=== PATIENT | female | born 1965 | race Caucasian/White ===

== ENCOUNTER 2016-05-01 20:28 | Emergency (ER) | payer OTHER ==
[2016-05-01 20:46] VITALS: TEMP 98.1; BMI 27.4
[2016-05-01] MEDS ORDERED: LORAZEPAM CARPU-JECT 2 MG/ML DISP.SYRIN IM ONE ×2 (20:49→21:34)
[2016-05-01] MEDS ORDERED: HALOPERIDOL LACTATE 5 MG/ML IM ONE ×2 (20:49→21:33)
--- NOTE | 2016-05-01 20:49 | PDOC ---
[id number] No Limitations - History of Present Illness Timing/Duration: unsure Severity: mild Associated Symptoms: reports: denies symptoms <Amisha Palacio - Last Filed: 05/02/16 06:08> <Divina Siddiqui - Last Filed: 06/22/16 09:03> - General Chief Complaint: Alcohol intoxication Stated Complaint: INTOX Time Seen by Provider: 05/01/16 20:35 Past History - Travel Traveled outside of the country in the last 30 days: No Close contact w/someone who was outside of country & ill: No - Past Medical History Anemia: Yes - Psycho/Social/Smoking Cessation Hx Anxiety: No Suicidal Ideation: No Smoking Status: Yes Smoking History: Former smoker Number of Cigarettes Smoked Daily: 7 If you are a former smoker, when did you quit?: 15 yrs ago Information on smoking cessation initiated: No 'Breaking Loose' booklet given: 07/04/13 Hx Alcohol Use: Yes Drug/Substance Use Hx: (marijuana) <Amisha Palacio - Last Filed: 05/02/16 06:08> <Divina Siddiqui - Last Filed: 06/22/16 09:03> - Past Medical History Allergies/Adverse Reactions: Allergies Allergy/AdvReac Type Severity Reaction Status Date / Time No Known Allergies Allergy Verified 05/01/16 20:44 Home Medications: Ambulatory Orders No Home Medications 0 dose .ROUTE UTDICT 01/06/13 Review of Systems - Review of Systems Able to Perform ROS?: Yes Comments:: 05/02/16 00:37 CONSTITUTIONAL: Absent: fever, chills, diaphoresis, generalized weakness, malaise, loss of appetite HEENT: Absent: rhinorrhea, nasal congestion, throat pain, throat swelling, difficulty swallowing, mouth swelling, ear pain, eye pain, visual Changes CARDIOVASCULAR: Absent: chest pain, loss of consciousness, palpitations, irregular heart rate, peripheral edema RESPIRATORY: Absent: cough, shortness of breath, dyspnea with exertion, orthopnea, wheezing, stridor, hemoptysis GASTROINTESTINAL: Absent: abdominal pain, abdominal distension, nausea, vomiting, diarrhea, constipation, melena, hematochezia GENITOURINARY: Absent: dysuria, frequency, urgency, hesitancy, hematuria, flank pain, genital pain MUSCULOSKELETAL: Absent: myalgia, arthralgia, joint swelling SKIN: Absent: rash, itching, pallor HEMATOLOGIC/IMMUNOLOGIC: Absent: easy bleeding, easy bruising, lymphadenopathy, frequent infections ENDOCRINE: Absent: unexplained weight gain, unexplained weight loss, heat intolerance, cold intolerance NEUROLOGIC: Absent: headache, focal weakness or paresthesias, dizziness, unsteady gait, seizure, mental status changes, bladder or bowel incontinence PSYCHIATRIC: Absent: anxiety, depression, suicidal or homicidal ideation, hallucinations. Is the patient limited Stateless proficient: No <Amisha Palacio - Last Filed: 05/02/16 06:08> *Physical Exam - Vital Signs Last Vital Signs Temp Pulse Resp BP Pulse Ox 98.1 F 102 H 18 147/87 95 05/01/16 20:45 05/01/16 20:45 05/01/16 20:45 05/01/16 20:45 05/01/16 20:45 - Physical Exam Comments: 05/02/16 00:37 GENERAL: AOB Well developed, well nourished. Awake and alert. No acute distress. HEENT: Normocephalic, atraumatic. PERRLA, EOMI. No conjunctival pallor. Sclera are non- icteric. Moist mucous membranes. Oropharynx is clear. NECK: Supple. Full ROM. No JVD. Carotid pulses 2+ and symmetric, without bruits. No thyromegaly. No lymphadenopathy. CARDIOVASCULAR: Regular rate and rhythm. No murmurs, rubs, or gallops. Distal pulses are 2+ and symmetric. PULMONARY: No evidence of respiratory distress. Lungs clear to auscultation bilaterally. No wheezing, rales or rhonchi. ABDOMINAL: Soft. Non-tender. Non-distended. No rebound or guarding. No organomegaly. Normoactive bowel sounds. MUSCULOSKELETAL Normal range of motion at all joints. No bony deformities or tenderness. No CVA tenderness. EXTREMITIES: No cyanosis. No clubbing. No edema. No calf tenderness. SKIN: Warm and dry. Normal capillary refill. No rashes. No jaundice. NEUROLOGICAL: Alert, awake, appropriate but uncooperative; pt kept flailing her arms and legs. Loud and boisterous. Cranial nerves 2-12 intact. No deficits to light touch and temperature in face, upper extremities and lower extremities. No motor deficits in the in face, upper extremities and lower extremities. Normoreflexic in the upper and lower extremities. Normal speech. Toes are down- going bilaterally. Gait is normal without ataxia. PSYCHIATRIC: Cooperative. Good eye contact. Appropriate mood and affect. <Amisha Palacio - Last Filed: 05/02/16 06:08> - Vital Signs Last Vital Signs Temp Pulse Resp BP Pulse Ox 98.1 F 89 18 109/87 100 05/01/16 20:45 05/02/16 06:06 05/02/16 06:06 05/02/16 06:06 05/02/16 06:06 <Divina Siddiqui - Last Filed: 06/22/16 09:03> ED Treatment Course - LABORATORY CBC & Chemistry Diagram: 05/01/16 21:05 05/01/16 21:05 <Amisha Palacio - Last Filed: 05/02/16 06:08> - LABORATORY CBC & Chemistry Diagram: 05/01/16 21:05 05/01/16 21:05 - ADDITIONAL ORDERS Additional order review: 05/01/16 21:05 RBC 4.16 MCV 90.3 D MCHC 33.7 RDW 14.0 D MPV 8.9 D Neutrophils % 62.3 Lymphocytes % 29.1 Monocytes % 6.5 Eosinophils % 0.5 Basophils % 1.6 - Medications Given in the ED: ED Medications Discontinued Medications Generic Name Dose Route Start Last Admin Trade Name Sivlina PRN Reason Stop Dose Admin Diphenhydramine HCl 25 mg 05/01/16 20:49 05/01/16 21:00 Benadryl Injection - IM 05/01/16 20:50 25 mg ONCE ONE Administration Diphenhydramine HCl 25 mg 05/01/16 21:34 05/01/16 23:17 Benadryl Injection - IM 05/01/16 21:35 Not Given ONCE ONE Diphenhydramine HCl 25 mg 05/01/16 21:38 05/01/16 23:17 Benadryl Injection - IVPB 05/01/16 21:39 Not Given ONCE ONE Haloperidol 5 mg 05/01/16 20:49 05/01/16 21:00 Haldol Injection (Fast Acting) - IM 05/01/16 20:50 5 mg ONCE ONE Administration Haloperidol 5 mg 05/01/16 21:33 05/01/16 22:11 Haldol Injection (Fast Acting) - IM 05/01/16 21:34 Not Given ONCE ONE Folic Acid 1 mg/ Thiamine HCl 1,000 mls @ 125 mls/hr 05/01/16 20:50 05/01/16 21 :18 100 mg/ Multivitamins/Minerals IVPB 05/02/16 04:49 125 mls/hr 10 ml/ Sodium Chloride ONCE ONE Administration Lorazepam 2 mg 05/01/16 20:49 05/01/16 21:00 Ativan Injection - IM 05/01/16 20:50 2 mg ONCE ONE Administration Lorazepam 2 mg 05/01/16 21:34 05/01/16 23:16 Ativan Injection - IM 05/01/16 21:35 Not Given ONCE ONE <Divina Siddiqui - Last Filed: 06/22/16 09:03> *DC/Admit/Observation/Transfer - Discharge Dispostion Admit: No <Amisha Palacio - Last Filed: 05/02/16 06:08> - Attestations Physician Attestion: I reviewed the case with the mid-level practitioner and agree with the mid- level practitioner's assessment, diagnosis and disposition. <Divina Siddiqui - Last Filed: 06/22/16 09:03> Diagnosis at time of Disposition: Intoxication - Discharge Dispostion Disposition: HOME Condition at time of disposition: Improved - Referrals Referrals: Mark Nye MD [Primary Care Provider] - - Patient Instructions Printed Discharge Instructions: Blood Alcohol Level Additional Instructions: Increase fluids Tylenol/Motrin as needed Return to the ER for any chest pain, shortness of breath Progress Note - Progress Note Progress Note: 50 yo F biba after finding her in front her home, intoxicated. Patient denies any headache, dizziness, lightheadedness, sore throat, neck pain, back pains, chest pain, shortness of breath, abdominal pains. Patient presents to the emergency Department loud and boisterous. Yelling and using profanity. Flaring her arms and legs <Amisha Palacio - Last Filed: 05/02/16 06:08>
[2016-05-01] MEDS ORDERED: FOLIC ACID INJECTION - 1 MG, THIAMINE HCL 100 MG, MULTIVIT INJECTION ADULT 10 ML in SOD... IVPB ONE (20:50)
[2016-05-01] MEDS ORDERED: HALOPERIDOL LACTATE 5 MG/ML ONE (20:50)
[2016-05-01] MEDS ORDERED: LORAZEPAM CARPU-JECT 2 MG/ML DISP.SYRIN ONE (20:51)
[2016-05-01 21:13] LABS: BASOPHIL 1.6 % (0-2.0); EOSINOPHIL 0.5 % (0-4.5); MCH 30.5 pg (25.7-33.7); MCHC 33.7 g/dl (32.0-36.0); MEAN CELL VOLUME 90.3 fl (80-96); MEAN PLT VOLUME 8.9 fl (7.5-11.1); NEUTROPHILS 62.3 % (42.8-82.8); PLATELET COUNT 253 K/MM3 (134-434); WHITE BLOOD COUNT 7.6 K/mm3 (4.0-10.0)
[2016-05-01 21:49] LABS: ALBUMIN 3.8 g/dl (3.4-5.0); ALK PHOS 110 U/L (45-117); ANION GAP 11 (8-16); BILIRUBIN,TOTAL 0.3 mg/dL (0.2-1.0); CALCIUM 9.4 mg/dL (8.5-10.1); CO2 25 mmol/L (21-32); CREATININE 0.6 mg/dL (0.55-1.02); GLUCOSE,RANDOM 97 mg/dL (74-106); SGOT/AST 22 U/L (15-37); SGPT/ALT 25 U/L (12-78); TOT PROT 7.2 g/dl (6.4-8.2)
[2016-05-02 06:07] VITALS: BP 109/87; PULSE 89
--- NOTE | 2016-05-02 23:26 | EKG ---
Test Reason : Blood Pressure : / mmHG Vent. Rate : 076 BPM Atrial Rate : 076 BPM P-R Int : 170 ms QRS Dur : 094 ms QT Int : 408 ms P-R-T Axes : 055 -39 070 degrees QTc Int : 459 ms NORMAL SINUS RHYTHM POSSIBLE LEFT ATRIAL ENLARGEMENT LEFT AXIS DEVIATION ABNORMAL ECG NO PREVIOUS ECGS AVAILABLE Confirmed by DONOVAN HOPSON MD ([id number]) on 05/02/2016 11:26:11 PM Referred By: Confirmed By:DONOVAN HOPSON MD
== END 2016-05-02 06:18 | disposition home or self-care (01) ==
LOC: JER 20:28
DX: F10.120 Alcohol abuse with intoxication, uncomplicated (principal); Y90.8 Blood alcohol level of 240 mg/100 ml or more
CPT/HCPCS: 36415; 80053; 80307; 85025; 93005; 93010; 99283-25